=== PATIENT | male | born 1995 | race Two or more races ===

== ENCOUNTER 2021-04-08 00:19 | Emergency (ER) | payer SELFPAY ==
[~2021-04-08] VITALS: Ht 177.8 cm; Wt 74.8 kg
[2021-04-08] MEDS ORDERED: TETANUS-DIPTH-ACEL PERTUSSIS 0.5ML SYR Tdap IM ONE (00:30)
[2021-04-08] MEDS ORDERED: HYDROmorphone HCL 2 MG/ML VL IV ONE (00:30)
[2021-04-08] MEDS ORDERED: ONDANSETRON HCL 4 MG/2 ML VIAL IV ONE (00:30)
[2021-04-08] MEDS ORDERED: SODIUM CHLORIDE 0.9% 1,000 ML IV ONE (00:30)
[2021-04-08] MEDS ORDERED: ceFAZolin 1GM/50ML 50 ML IV ONE (00:30)
[2021-04-08] MEDS ORDERED: D5W/SOD CHL 0.45% 1,000 ML IV ONE (00:45)
[2021-04-08] MEDS ORDERED: HYDROmorphone HCL 2 MG/ML VL IV PRN (00:45)
[2021-04-08] MEDS ORDERED: ONDANSETRON HCL 4 MG/2 ML VIAL IV PRN (00:45)
[2021-04-08] MEDS ORDERED: MORPHINE SULFATE 4 MG/ML SYR/VIAL IV PRN (00:45)
[2021-04-08] MEDS ORDERED: HYDROcodone-ACET 5/325MG TAB PO PRN (00:45)
[2021-04-08 00:58] LABS: Basophils # (auto) 0.1 10 ^3/uL (0-0.2); Basophils % (auto) 0.9 % (0.0-2.0); Eosinophils # (auto) 0.2 10 ^3/uL (0-0.8); Eosinophils % (auto) 2.6 % (0.0-7.0); Hematocrit 43.3 % (41.0-53.0); Hemoglobin 14.6 g/dL (13.5-17.5); Lymphocytes # (auto) 3.8 10 ^3/uL (0.4-5.4); Lymphocytes % (auto) 42.1 % (10.0-50.0); Mean Corpuscular Hemoglobin 31.4 pg (28.0-32.0); Mean Corpuscular Hgb Conc. 33.7 g/dL (32.0-36.0); Mean Corpuscular Volume 93.1 fL (80.0-100.0); Monocytes # (auto) 0.6 10 ^3/uL (0-1.3); Monocytes % (auto) 6.6 % (0.0-12.0); Neutrophils # (auto) 4.3 10 ^3/uL (1.6-8.6); Neutrophils % (auto) 47.8 % (37.0-80.0); Red Blood Cells 4.65 10^6/uL (4.5-5.90); Red Cell Distribution Width 12.2 % (11.8-14.3)
[2021-04-08 01:14] LABS: INR 1.09 (0.9-1.15); Partial Thromboplastin Time 24.2 sec (23.6-33.0)
[2021-04-08 01:17] LABS: Albumin 3.9 g/dL (3.4-5.0); BUN/Creatinine Ratio 20.2; Potassium 3.9 mmol/L (3.5-5.1)
[2021-04-08 01:40] LABS: Bilirubin, Total 0.5 mg/dL (0.2-1.0); Total Protein 6.8 g/dL (6.4-8.2)
[2021-04-08 02:28] VITALS: BP 146/97
== END 2021-04-08 02:54 | disposition short-term general hospital (02) ==
LOC: ER 00:19
DX: S62.347B Nondisplaced fracture of base of fifth metacarpal bone, left hand, initial encounter for open fracture (principal); Z20.822 Contact with and (suspected) exposure to COVID-19; W32.0XXA Accidental handgun discharge, initial encounter; Y93.89 Activity, other specified; Y92.89 Other specified places as the place of occurrence of the external cause; Y99.8 Other external cause status
CPT/HCPCS: 29125; 36415; 73120; 80053; 80320; 85025; 85610; 85730; 86850; 86900; 86901; 87426; 90471; 90715; 96374; 96375; 96376; 99285; J0690; J1170; J2405; J7030